=== PATIENT | female | born 1960 | race Caucasian/White ===

== ENCOUNTER 2017-05-21 16:57 | Emergency (ER) | payer MEDICARE ==
--- NOTE | 2017-05-21 21:36 | RAD ---
RIGHT FOOT THREE VIEWS: Date: 05-21-17 FINDINGS: No fracture, dislocation, or periosteal reaction was seen. The bones and joints showed no acute solis es. There may have been old trauma to the base of the middle phalanx at the PIP joint of the second t oe. It does not appear acute and should probably be taken as old unless there has been recent trauma in this location. Foot was otherwise unremarkable. IMPRESSION: No definite acute findings. See comments above regarding second toe, PIP joint. POS: HOME
== END 2017-05-21 17:45 | disposition home or self-care (01) ==
LOC: BURERS 16:57
DX: M19.071 Primary osteoarthritis, right ankle and foot (principal); F17.210 Nicotine dependence, cigarettes, uncomplicated
CPT/HCPCS: 99283

== ENCOUNTER 2018-08-19 14:08 | Outpatient (CLI) | payer MEDICARE ==
--- NOTE | 2018-08-19 17:54 | RAD ---
CHEST TWO VIEWS: Date: 08-19-18 Comparison: 10-02-13, but I suspected that there has been a more recent comparison study. FINDINGS: A right middle lobe infiltrate is seen today consistent with pneumonia. There is the suggestion that there may be a little bit of lingular infiltrate as well. The upper lobes are clear. There are no eff usions. The trachea is midline. IMPRESSION: Right middle lobe pneumonia. Presumed small lingular pneumonia. POS: HOME
== END 2018-08-19 14:09 | disposition home or self-care (01) ==
LOC: BURRAD 14:08
PROVIDERS: ATTEND Family Medicine
DX: J18.1 Lobar pneumonia, unspecified organism (principal)
CPT/HCPCS: 71046

== ENCOUNTER 2018-12-25 14:11 | Outpatient (CLI) | payer MEDICARE ==
--- NOTE | 2018-12-25 17:46 | RAD ---
CHEST TWO VIEWS: 12/25/18 Comparison is made with the 08/19/18 study. The numerous infiltrates that were present before have largely resolved. There is a small amount of r esidual in the right middle lobe, but it is far less than before. There is no sign of mediastinal mas s. There is no widening of the upper mediastinum or deviation of the trachea. The lungs are mildly hy perexpanded as before. No acute bony changes were noted. IMPRESSION: Overall improvement in the appearance of the chest since last July. POS: HOME
== END 2018-12-25 14:12 | disposition home or self-care (01) ==
LOC: BURRAD 14:11
PROVIDERS: ATTEND Family Medicine
DX: M79.89 Other specified soft tissue disorders (principal)
CPT/HCPCS: 71046

== ENCOUNTER 2019-03-17 06:44 | Emergency (ER) | payer MEDICARE ==
[2019-03-17 07:46] LABS: #Lymphocytes 3.1 thou/uL (1.20-3.40); #Monocytes 0.7 thou/uL (0.11-0.59); #Neutrophils 7.5 thou/uL (1.40-6.50); %Basophils 0.3 % (0.0-1.0); %Eosinophils 0.3 % (0.0-10.0); %Lymphocytes 27.6 % (21.0-51.0); %Monocytes 6.2 % (0.0-10.0); %Neutrophils 65.6 % (42.0-75.0); Hemoglobin 14.5 g/dL (12.0-16.0); Mean Corpuscular HGB CONC 32.7 g/dL (32.0-36.0); Mean Corpuscular Hemoglobin 31.1 pg (27.0-31.0); Mean Corpuscular Volume 94.9 fL (78.0-98.0); Mean Platelet Volume 6.5 fL (7.4-10.4); Platelet Count 226 thou/uL (130-400); RBC Distribution Width 14.4 % (11.5-14.5); Red Blood Cell (RBC) Count 4.68 mill/uL (4.20-5.40); White Blood Cell (WBC) Count 11.4 thou/uL (4.8-10.8)
[2019-03-17 08:16] LABS: BUN (Urea Nitrogen) 16 mg/dL (9.8-20.1); Bilirubin, Total 0.6 mg/dL (0.2-1.2); Calc. Creatinine Clearance 0 mL/min (70-130); Protein, Total 8.6 g/dL (6.0-8.3); Sodium 140 mmol/L (136-145)
[2019-03-17 08:35] LABS: ALT (SGPT) 68 U/L (8-55); AST (SGOT) 64 U/L (5-34); Albumin 4.6 g/dL (3.5-5.0); Alkaline Phosphatase 96 U/L (40-110); Anion Gap 17 mmol/L (10-20); Carbon Dioxide 28 mmol/L (22-29); Chloride 100 mmol/L (98-107); Estimated GFR-MDRD 43; Glucose 107 mg/dL (70-105); Potassium 5.1 mmol/L (3.5-5.1)
[2019-03-17 08:59] LABS: CKMB 37.8 ng/mL (0-6.6)
[2019-03-17 11:59] LABS: Troponin I 0.043 ng/mL (< 0.028)
--- NOTE | 2019-03-17 19:43 | RAD ---
CHEST TWO VIEWS: Date: 03-17-19 Comparison: 12-25-18 FINDINGS: The lungs are hyperexpanded. No lobar consolidation or effusion was seen. A little bit of streaking a long the right heart border seems no different than before. Calcification is seen overlying the left chest which has not changed. The upper lobes are clear. There is a small nodular density or two in th e lungs which could be a confluence of shadows or calcified granulomas. It is difficult to compare th e same area with the prior study due to overlapping ribs. IMPRESSION: Chronic changes but no definite acute findings. POS: HOME
== END 2019-03-17 12:12 | disposition home or self-care (01) ==
LOC: BURERS 06:44
DX: R07.89 Other chest pain (principal); F17.210 Nicotine dependence, cigarettes, uncomplicated; Z79.1 Long term (current) use of non-steroidal anti-inflammatories (NSAID); Z79.899 Other long term (current) drug therapy; Z79.51 Long term (current) use of inhaled steroids
CPT/HCPCS: 36415; 71046; 80053; 82553; 84443; 84484; 85025

== ENCOUNTER 2021-12-06 13:46 | Emergency (ER) | payer MEDICARE | END 2021-12-06 14:10 | disposition home or self-care (01) | LOC: BURERS 13:46 | DX: S50.01XA Contusion of right elbow, initial encounter (principal); E03.9 Hypothyroidism, unspecified; J44.9 Chronic obstructive pulmonary disease, unspecified; F17.210 Nicotine dependence, cigarettes, uncomplicated; W06.XXXA Fall from bed, initial encounter ==

== ENCOUNTER 2022-02-20 09:53 | Emergency (ER) | payer MEDICARE ==
[2022-02-20] MEDS ORDERED: Ibuprofen 200 MG TAB ONE (11:39)
== END 2022-02-20 11:37 | disposition home or self-care (01) ==
LOC: BURERS 09:53
DX: S30.0XXA Contusion of lower back and pelvis, initial encounter (principal); E03.9 Hypothyroidism, unspecified; J44.9 Chronic obstructive pulmonary disease, unspecified; F17.210 Nicotine dependence, cigarettes, uncomplicated; W01.0XXA Fall on same level from slipping, tripping and stumbling without subsequent striking against object, initial encounter; Y99.0 Civilian activity done for income or pay
CPT/HCPCS: 99283

== ENCOUNTER 2022-03-14 08:46 | Emergency (ER) | payer MEDICARE | END 2022-03-14 09:26 | disposition home or self-care (01) | LOC: EDBD → BURERS 08:46 | DX: J30.9 Allergic rhinitis, unspecified (principal); E03.9 Hypothyroidism, unspecified; J44.9 Chronic obstructive pulmonary disease, unspecified; F17.210 Nicotine dependence, cigarettes, uncomplicated | CPT/HCPCS: 99283 ==